=== PATIENT | female | born 1985 | race Caucasian/White ===

== ENCOUNTER 2016-12-13 16:30 | Inpatient (IN) | payer OTHER ==
[~2016-12-13] VITALS: Ht 162.6 cm; Wt 74.6 kg
[2016-12-13] VITALS (9 sets, daily range): BP systolic 101–129; BP diastolic 57–85
[2016-12-13 17:14] LABS: EOSINOPHIL (%) 0.7 % (0-5); EOSINOPHIL COUNT 0.1 K/uL (0-0.3); HEMATOCRIT 40.1 % (36.0-46.0); IMMATURE GRANULOCYTE (%) 0.8 % (0.0-0.7); IMMATURE GRANULOCYTE COUNT 0.1 K/uL; INSTRUMENT ABS NEUTROPHIL CT 7.7 K/uL; LYMPHOCYTE COUNT 1.2 K/uL (1.0-2.8); MCH 32.6 PG (29.0-34.0); MCHC 35.2 G/DL (30.0-36.0); MCV 92.6 FL (83-99); MEAN PLAT.VOLUME 11.2 uM^3 (9.5-12.4); MONOCYTE (%) 8.7 % (3-12); MONOCYTE COUNT 0.9 K/uL (0-0.8); NEUTROPHIL (%) 77.8 % (45-76); NEUTROPHIL COUNT 7.7 K/uL (1.8-6.4); PLATELET COUNT 187 K/uL (156-360); RBC DIS.WIDTH-CV 14.2 % (11.8-14.6); RED BLOOD COUNT 4.33 M/uL (3.80-5.20); WHITE BLOOD COUNT 9.9 K/uL (4.1-10.2)
[2016-12-13] MEDS ORDERED: TYLENOL EXTRA500 MG PO (18:51)
[2016-12-13] MEDS ORDERED: PRENATAL TABLE1 EAC3 PO (18:51)
[2016-12-13] MEDS ORDERED: TUMS500 MG PO (18:51)
[2016-12-13] MEDS ORDERED: VALTREX50 MG/ML PO (18:52)
[2016-12-14] VITALS (47 sets, daily range): BP systolic 73–151; BP diastolic 37–96
[2016-12-15] VITALS (24 sets, daily range): BP systolic 106–147; BP diastolic 55–103
[2016-12-15] MEDS ORDERED: MOTRIN800 MG PO (16:51)
[2016-12-16 23:40] VITALS: BP 130/81
== END 2016-12-17 18:19 | disposition home or self-care (01) | DRG 774 ==
LOC: LDRP-OP 16:30 → 2WEST 16:31 → LDRP-OP 01-02 15:31
PROVIDERS: Obstetrics & Gynecology
PROC: 3E0P7GC Introduction of Other Therapeutic Substance into Female Reproductive, Via Natural or Artificial Opening (ICD-10-PCS; 2016-12-13)
PROC: 3E0S3BZ Introduction of Anesthetic Agent into Epidural Space, Percutaneous Approach (ICD-10-PCS; 2016-12-14)
PROC: 3E033VJ Introduction of Other Hormone into Peripheral Vein, Percutaneous Approach (ICD-10-PCS; 2016-12-14)
PROC: 0W8NXZZ Division of Female Perineum, External Approach (ICD-10-PCS; principal; 2016-12-15)
PROC: 10E0XZZ Delivery of Products of Conception, External Approach (ICD-10-PCS; principal; 2016-12-15)
DX: O48.0 Post-term pregnancy (principal); O98.32 Other infections with a predominantly sexual mode of transmission complicating childbirth; O99.824 Streptococcus B carrier state complicating childbirth; Z37.0 Single live birth; Z3A.41 41 weeks gestation of pregnancy; A60.09 Herpesviral infection of other urogenital tract; O42.02 Full-term premature rupture of membranes, onset of labor within 24 hours of rupture; O69.81X1 Labor and delivery complicated by cord around neck, without compression, fetus 1; O76 Abnormality in fetal heart rate and rhythm complicating labor and delivery; O69.89X1 Labor and delivery complicated by other cord complications, fetus 1
CPT/HCPCS: 85025; C1755; G0378; J0595; J2540; J3010; J7120